=== PATIENT | female | born 1960 | race Caucasian/White ===

== ENCOUNTER 2021-12-18 08:42 | Observation (INO) | payer BC ==
[2021-12-15 12:09] LABS: BASOPHILS # (AUTO) 0.1 (0.0-0.1); BASOPHILS % 1.2 % (0.0-1.0); EOSINOPHILS # (AUTO) 0.1 (0.0-0.4); EOSINOPHILS % 1.6 % (0.0-6.0); HEMATOCRIT 48.6 % (34.2-44.1); LYMPHOCYTES # (AUTO) 2.4 (1.0-3.2); LYMPHOCYTES % 29.2 % (18.0-39.1); MEAN CORPUSCULAR HEMOGLOBIN 32.1 pg (28-32); MEAN CORPUSCULAR HGB CONC 32.9 g/dL (31-35); MEAN CORPUSCULAR VOLUME 97.4 fL (81-99); MONOCYTES # (AUTO) 0.6 (0.2-0.8); MONOCYTES % 6.8 % (4.4-11.3); NEUTROPHILS # (AUTO) 5.1 (2.1-6.9); PLATELET COUNT 394 x10e3/uL (140-360); RED BLOOD COUNT 4.99 x10e6/uL (3.6-5.1); RED CELL DISTRIBUTION WIDTH 13.5 % (11.7-14.4)
[2021-12-15 12:33] LABS: INR 0.85; PROTHROMBIN TIME 12.4 seconds (11.9-14.5)
[2021-12-15 12:34] LABS: PARTIAL THROMBOPLASTIN TIME 27.9 seconds (23.8-35.5)
[2021-12-15 12:40] LABS: ANION GAP 16.2 mmol/L (8-16); CALCIUM 9.8 mg/dL (8.4-10.2); CREATININE, SERUM 0.91 mg/dL (0.57-1.11); POTASSIUM 4.2 mmol/L (3.5-5.1)
[~2021-12-18 08:42] MED LIST: LEVOTHYROXINE50 MCG PO; MULTI; NAPROSYN500 MG PO; THROMBIN FOR SOLN 5,000 UNIT VIAL ONE; TRIAMTERENE-HCTZ1 EA PO; Vancomycin IV 1 GM VIAL ONE
[2021-12-18] MEDS ORDERED: HYDROCODON-ACE1 EA12 PO (13:50)
[2021-12-18] MEDS ORDERED: ACETAMINOPHEN 325 MG TAB PO PRN (14:00)
[2021-12-18] MEDS ORDERED: HYDROMORPHONE 2MG/ML 2 MG/ML ML IV PRN (14:00)
[2021-12-18] MEDS ORDERED: PROMETHAZINE HCL (IM) 25 MG/ML VIAL IM PRN (14:00)
[2021-12-18] MEDS ORDERED: MAGNESIUM/ALUMINUM/SIMETHICONE 30 ML UDC PO PRN (14:00)
[2021-12-18] MEDS ORDERED: OXYCODONE/ACETAMINOPHEN 5-325 1 EACH TABLET PO PRN (14:00)
[2021-12-18] MEDS ORDERED: CARISOPRODOL 350 MG TAB PO PRN (14:00)
[2021-12-18] MEDS ORDERED: ZOLPIDEM TARTRATE 5 MG TAB PO PRN (14:00)
[2021-12-18] MEDS ORDERED: Morphine 4mg INJECTION 4 MG/ML INJ IM PRN (14:00)
[2021-12-18] MEDS ORDERED: ONDANSETRON HCL INJ 2MG/ML 2ML 2 MG/ML VIAL IV PRN (14:00)
[2021-12-18] MEDS ORDERED: MIDAZOLAM HCL 2 MG/2 ML VIAL ONE ×2 (14:10→14:31)
[2021-12-18] MEDS ORDERED: HYDROMORPHONE 1MG/1ML INJ ONE (14:22)
[2021-12-18] MEDS ORDERED: FENTANYL CITRATE/PF 100MCG/2 ML INJ ONE ×2 (14:31→14:56)
[2021-12-18 16:19] VITALS: BP 112/51
[2021-12-18] MEDS: NAPROXEN 250 MG TAB PO SCH ×3 (16:30→20:40)
[2021-12-18 17:30] VITALS: BP 112/51
[2021-12-18] MEDS: LACTATED RINGER'S 1,000 ML IV SCH (17:35)
[2021-12-18] MEDS ORDERED: SEVOFLURANE INHAL SOLN 250 ML PEN BTL ONE (17:45)
[2021-12-18] MEDS ORDERED: POVIDONE IODINE 0.05% 0.05 % ML PO ONE (17:45)
[2021-12-18] MEDS ORDERED: IBUPROFEN 800 MG/200 ML BAG IV ONE (17:45)
[2021-12-18] MEDS ORDERED: DEXAMETHASONE SOD PHOS INJ 4 MG/ML SDV ONE (17:45)
[2021-12-18] MEDS ORDERED: ACETAMINOPHEN 1000 MG/100 ML IV ONE (17:45)
[2021-12-18] MEDS ORDERED: ROCURONIUM BROMIDE 10 MG/ML 5ML VIAL IV ONE (17:45)
[2021-12-18] MEDS ORDERED: ONDANSETRON HCL INJ 2MG/ML 2ML 2 MG/ML VIAL ONE (17:45)
[2021-12-18] MEDS ORDERED: LIDOCAINE HCL (LTA) 4 ML SOLN ONE (17:45)
[2021-12-18] MEDS ORDERED: PROPOFOL IV EMULSION 10 MG/ML 20 ML VIAL ONE (17:45)
[2021-12-18] MEDS ORDERED: SUGAMMADEX SODIUM 200 MG/2 ML VIAL IV ONE (17:45)
[2021-12-18 20:00] VITALS: BP 122/48
[2021-12-18 21:53] VITALS: BP 122/48
[2021-12-19] VITALS: BP 110/57
[2021-12-19 04:00] VITALS: BP 109/45
[2021-12-19 04:56] VITALS: BP 110/57
[2021-12-19] MEDS ORDERED: LEVOTHYROXINE SODIUM 50 MCG TAB PO SCH (06:00)
[2021-12-19] MEDS: LACTATED RINGER'S 1,000 ML IV SCH (06:08)
[2021-12-19 08:01] VITALS: BP 99/77
[2021-12-19] MEDS ORDERED: TRIAMTERENE/HCTZ 37.5-25 MG TAB PO SCH (09:00)
[2021-12-19] MEDS: NAPROXEN 250 MG TAB PO SCH (09:01)
== END 2021-12-19 10:20 | disposition home or self-care (01) ==
LOC: OR 08:42 → PACU V 13:48 → MED/SURG2 15:58
PROVIDERS: ADMIT Neurological Surgery; ATTEND Neurological Surgery
DX: M51.16 Intervertebral disc disorders with radiculopathy, lumbar region (principal); Z20.822 Contact with and (suspected) exposure to COVID-19; Z01.818 Encounter for other preprocedural examination; I10 Essential (primary) hypertension; E03.9 Hypothyroidism, unspecified; Z98.1 Arthrodesis status; Z87.891 Personal history of nicotine dependence
CPT/HCPCS: 0223U; 36415; 63047; 71046; 72020; 80048; 85025; 85610; 85730; 86850; 86900; 88304; 93005; G0378 ×2; J0131; J0690 ×2; J1100; J1170 ×2; J2250; J2405; J2704; J3010; J3370; J7121